=== PATIENT | female | born 1970 | race Caucasian/White ===

== ENCOUNTER 2016-09-18 16:51 | Emergency (ER) | payer BC ==
[~2016-09-18] VITALS: Ht 154.9 cm; Wt 48.1 kg
[~2016-09-18 16:51] MED LIST: ALPR0.5T96 PO; ESTR1TAB PO; ESTR1TAB21 PO
[2016-09-18 16:56] VITALS: BP_SYST 142
[2016-09-18 17:10] LABS: BASOPHILS % (AUTO) 0.6 % (0.0-2.0); EOSINOPHILS # (AUTO) 0.1 K/uL (0.0-0.4); EOSINOPHILS % (AUTO) 1.4 % (0.0-4.0); HEMATOCRIT 39.5 % (36-48); HEMOGLOBIN 13.1 g/dL (12.0-16.0); LYMPHOCYTES # (AUTO) 1.9 K/uL (1.0-5.5); LYMPHOCYTES % (AUTO) 32.9 % (20.5-51.5); MEAN CORPUSCULAR HEMOGLOBIN 29 pg (27-31); MEAN CORPUSCULAR HGB CONC 33 % (32-36); MEAN CORPUSCULAR VOLUME 88 fL (79.0-98.0); MONOCYTES # (AUTO) 0.4 K/uL (0.0-1.0); MONOCYTES % (AUTO) 7.8 % (1.7-9.3); NEUTROPHILS # (AUTO) 3.2 K/uL (1.8-7.7); NEUTROPHILS % (AUTO) 57.3 % (40.0-70.0); PLATELET COUNT (AUTO) 335 K/uL (130-430); RED BLOOD CELL COUNT(AUTO) 4.51 MIL/uL (4.2-6.2); RED CELL DISTRIBUTION WIDTH 12.4 % (9.0-15.0); WHITE BLOOD COUNT (AUTO) 5.6 K/uL (4.8-10.8)
[2016-09-18 17:33] LABS: ANION GAP 8 (5-15); CALCIUM 8.8 mg/dL (8.4-11.0); CHLORIDE 105 mmol/L (98-107); CREATININE 0.68 mg/dL (0.55-1.30); GLUCOSE 99 mg/dL (70-99); POTASSIUM 3.6 mmol/L (3.5-5.1); SODIUM SERUM 142 mmol/L (136-145); UREA NITROGEN, BLOOD 5 mg/dL (8-21)
[2016-09-18 17:41] LABS: ACETAMINOPHEN 3 ug/mL (1-30); ALANINE AMINOTRANSFERASE 18 U/L (12-78); ALBUMIN 3.8 g/dL (3.4-4.8); ASPARTATE AMINOTRANSFERASE 18 U/L (10-37); CREATINE KINASE, TOTAL 135 U/L (26-192); TOTAL BILIRUBIN 0.3 mg/dL (0.0-1.0); TOTAL PROTEIN, SERUM 6.7 g/dL (6.4-8.3)
[2016-09-18 17:47] LABS: GFR AFRICAN AMERICAN 120 mL/min (>90)
[2016-09-18 17:49] LABS: ALCOHOL, BLOOD < 3 mg/dL (<10); SALICYLATE 1 mg/dL (3-30)
[2016-09-18 19:01] LABS: BARBITURATE, URINE NEGATIVE (NEG <=200); BENZODIAZEPINE, URINE POSITIVE (NEG <=150); CANNABINOID, URINE NEGATIVE (NEG <=50); COCAINE, URINE NEGATIVE (NEG <=150); METHAMPHETAMINES SCREEN,URINE NEGATIVE (NEG <=500); OPIATE, URINE NEGATIVE (NEG <=100); PHENCYCLIDINE SCREEN,URINE NEGATIVE (NEG <=25); UR TRICYCLIC ANTIDEPRESSANTS NEGATIVE (NEG <=300); URINE AMPHETAMINE POSITIVE (NEG <=500); URINE METHADONE NEGATIVE (NEG <=200); URINE OXYCODONE SCREEN NEGATIVE (NEG <=100); URINE PROPOXYPHENE SCREEN NEGATIVE (NEG <=300)
[2016-09-18 19:55] VITALS: BP_SYST 137
== END 2016-09-18 19:55 | disposition home or self-care (01) ==
LOC: SED 16:51
DX: T43.621A Poisoning by amphetamines, accidental (unintentional), initial encounter (principal); R11.10 Vomiting, unspecified; Z88.0 Allergy status to penicillin; Y92.098 Other place in other non-institutional residence as the place of occurrence of the external cause
CPT/HCPCS: 36415; 80053; 80307; 82550; 84484; 84703; 85025; 93005; 99285; G0480; G0481; G0482

== ENCOUNTER 2017-08-20 06:16 | Emergency (ER) | payer BC ==
[~2017-08-20] VITALS: Ht 154.9 cm; Wt 55.3 kg
[2017-08-20 06:30] VITALS: BP_SYST 134
--- NOTE | 2017-08-20 07:00 | NUR ---
Pt in bed 8, complaining of left neck pain that radiates to back since Monday. Pt states she received an epidural injection on Monday. Per pt, pain in back and neck had gotten worse over the next few days. Pt also states she has diarrhea x 2 days. Pt appears to be anxious and is crying. No other injuries/complaints per patient or noted.
--- NOTE | 2017-08-20 07:00 | NUR ---
Received report from RN. All care endorsed.
--- NOTE | 2017-08-20 07:06 | NUR ---
ER Dr. Colin at bedside examining patient.
[2017-08-20] MEDS ORDERED: NACL 0.9% 1,000 ML IV ONE (07:15)
[2017-08-20] MEDS ORDERED: LORazepam 2 MG/ML VIAL (FOR ER USE) IVP ONE (07:15)
[2017-08-20] MEDS ORDERED: LOPERAMIDE HCL 2 MG CAPSULE PO ONE (07:15)
[2017-08-20] MEDS ORDERED: KETOROLAC TROMETHAMINE 30 MG VIAL IVP ONE (07:15)
[2017-08-20] MEDS ORDERED: ACET-1010 PO (07:19)
[2017-08-20] MEDS ORDERED: KETOROLAC TROMETHAMINE 30 MG VIAL ONE (07:30)
[2017-08-20 07:33] LABS: BASOPHILS % (AUTO) 0.3 % (0.0-2.0); EOSINOPHILS % (AUTO) 0.1 % (0.0-4.0); HEMATOCRIT 41.3 % (36-48); HEMOGLOBIN 13.8 g/dL (12.0-16.0); LYMPHOCYTES # (AUTO) 1.4 K/uL (1.0-5.5); LYMPHOCYTES % (AUTO) 17.8 % (20.5-51.5); MEAN CORPUSCULAR HEMOGLOBIN 29 pg (27-31); MEAN CORPUSCULAR HGB CONC 33 % (32-36); MEAN CORPUSCULAR VOLUME 88 fL (79.0-98.0); MONOCYTES # (AUTO) 0.6 K/uL (0.0-1.0); MONOCYTES % (AUTO) 6.9 % (1.7-9.3); NEUTROPHILS # (AUTO) 6.1 K/uL (1.8-7.7); NEUTROPHILS % (AUTO) 74.9 % (40.0-70.0); PLATELET COUNT (AUTO) 419 K/uL (130-430); RED CELL DISTRIBUTION WIDTH 13.2 % (9.0-15.0); WHITE BLOOD COUNT (AUTO) 8.1 K/uL (4.8-10.8)
[2017-08-20] MEDS ORDERED: LORazepam 2 MG/ML VIAL ONE (07:36)
[2017-08-20] MEDS ORDERED: LOPERAMIDE HCL 2 MG CAPSULE ONE (07:43)
[2017-08-20 07:45] LABS: CALCIUM 8.7 mg/dL (8.4-11.0); CREATININE 0.6 mg/dL (0.55-1.30); POTASSIUM 3.9 mmol/L (3.5-5.1)
--- NOTE | 2017-08-20 07:47 | NUR ---
Medications were given, pt tolerated well. No adverse reaction, will continue to monitor.
[2017-08-20 07:50] LABS: ALBUMIN 3.8 g/dL (3.4-4.8); TOTAL BILIRUBIN 0.6 mg/dL (0.0-1.0)
--- NOTE | 2017-08-20 08:19 | NUR ---
Pt resting comfortably in hospital bed. no acute distress. Pt states medcations "took the edge off." Will continue to monitor.
--- NOTE | 2017-08-20 09:00 | NUR ---
ER Dr. Martinez at bedside explaining results to patient.
[2017-08-20 09:30] VITALS: BP_SYST 124
--- NOTE | 2017-08-20 09:30 | NUR ---
Patient given written and verbal discharge instructions and verbalizes understanding. ER MD discussed with patient the results and treatment provided. Patient in stable condition. ID arm band removed. IV catheter removed intact and dressing applied, no active bleeding. Rx of ZOFRAN AND NORCO given. Patient educated on pain management and to follow up with PMD. Pain Scale 0/10. Opportunity for questions provided and answered. Medication side effect fact sheet provided.
== END 2017-08-20 09:30 | disposition home or self-care (01) ==
LOC: SED 06:16
DX: M50.20 Other cervical disc displacement, unspecified cervical region (principal); K62.5 Hemorrhage of anus and rectum; R19.7 Diarrhea, unspecified; Z88.0 Allergy status to penicillin
CPT/HCPCS: 36415; 71045; 80053; 85025; 96361; 96374; 96375; 99285; J1885; J2060; J7030; 93005